=== PATIENT | male | born 1975 | race Caucasian/White ===

== ENCOUNTER → 2017-03-25 | Outpatient (CLI) | payer OTHER | LOC: MHCPAIN 15:22 | DX: G89.29 Other chronic pain (principal); M47.27 Other spondylosis with radiculopathy, lumbosacral region; M53.3 Sacrococcygeal disorders, not elsewhere classified; M48.061 Spinal stenosis, lumbar region without neurogenic claudication; F17.220 Nicotine dependence, chewing tobacco, uncomplicated | CPT/HCPCS: G0463 ==

== ENCOUNTER → 2017-03-30 | Outpatient (CLI) | payer OTHER | LOC: COL.RAD 13:15 | DX: M47.817 Spondylosis without myelopathy or radiculopathy, lumbosacral region (principal); M43.17 Spondylolisthesis, lumbosacral region; M79.604 Pain in right leg ==

== ENCOUNTER → 2017-04-23 | Outpatient (CLI) | payer OTHER | LOC: MHCPAIN 08:58 | DX: M47.27 Other spondylosis with radiculopathy, lumbosacral region (principal); M43.16 Spondylolisthesis, lumbar region | CPT/HCPCS: J1100; J2250; J3010; Q9967 ==